=== PATIENT | female | born 1935 | race Two or more races ===

== ENCOUNTER 2017-01-30 21:09 | Emergency (ER) | payer MEDICARE, OTHER ==
[~2017-01-30] VITALS: Ht 162.6 cm; Wt 72.6 kg
--- NOTE | 2017-01-30 21:28 | NUR ---
PT BIBA #889 PT STATES SHE HAS NOT BEEN ABLE TO URINATE. PT AOX3 MALDIVIAN SPEAKING, FAMILY AT BEDSIDE FOR TRANSLATION. PT AOX3 RR EVEN AND UNLABORED. NO SOB NOTED. NAD NOTED. NO NVD AT THIS TIME. PT GOWNED AND PLACED ON MONITOR WAITING FOR MD CHOWDARY.
[2017-01-30] MEDS ORDERED: IV NS 0.9% 1,000 ML BAG IV ONE (21:30)
--- NOTE | 2017-01-30 21:30 | NUR ---
DR. AMBROSIO AT BEDSIDE FOR EVAL.
[2017-01-30] MEDS ORDERED: IV NS 0.9% 1,000 ML ONE (22:01)
[2017-01-30] MEDS ORDERED: IV SET PRIMARY 1 EA INFUS.SET MC ONE (22:01)
[2017-01-30 22:03] LABS: BASOPHILS # (AUTO) 0.1 /CMM (0.0-0.2); BASOPHILS % (AUTO) 1.2 % (0.0-2.0); EOSINOPHILS # (AUTO) 0.2 /CMM (0.0-0.7); EOSINOPHILS % (AUTO) 2.1 % (0.0-6.0); HEMATOCRIT 40 % (33-45); HEMOGLOBIN 13.3 g/dL (11.5-14.8); LYMPHOCYTES # (AUTO) 2.7 /CMM (0.8-4.8); LYMPHOCYTES % (AUTO) 26.1 % (20.0-44.0); MEAN CORPUSCULAR HEMOGLOBIN 29 PG (26.0-33.0); MEAN CORPUSCULAR HGB CONC 33 g/dl (31.0-36.0); MEAN CORPUSCULAR VOLUME 88 fL (82-100); MONOCYTES # (AUTO) 0.5 /CMM (0.1-1.30); MONOCYTES % (AUTO) 5.2 % (2.0-12.0); NEUTROPHILS # (AUTO) 6.9 /CMM (1.8-8.9); NEUTROPHILS % (AUTO) 65.4 % (43.0-81.0); PLATELET COUNT (AUTO) 365 /CMM (150-450); RDW COEFFICIENT OF VARIATION 14.4 (11.5-15.0); RED BLOOD CELL COUNT(AUTO) 4.59 MIL/uL (4.0-5.2); WHITE BLOOD COUNT (AUTO) 10.5 K/uL (4.3-11.0)
[2017-01-30 22:11] LABS: CALCIUM, SERUM 9.2 mg/dL (8.5-10.1); CREATININE 0.9 mg/dL (0.6-1.3)
[2017-01-30 22:20] LABS: LACTIC ACID 1.1 mmol/L (0.4-2.0)
[2017-01-30] MEDS ORDERED: CEFTRIAXONE 1GM BAG (ER ONLY) 1 GM/50 ML PIGGYBACK IV ONE (22:30)
[2017-01-30] MEDS ORDERED: IV D5W 50 ML IV ONE (22:47)
[2017-01-30] MEDS ORDERED: IV SET PRIMARY PUMP SET 1 EA INFUS.SET MC ONE (22:47)
[2017-01-30] MEDS ORDERED: CEFTRIAXONE 1 G VIAL ONE (22:47)
--- NOTE | 2017-01-30 23:38 | NUR ---
IV removed. Catheter intact and site benign. Pressure and 4x4 applied to site. No bleeding noted. Patient discharged to home in stable condition. Written and verbal after care instructions given. Patient verbalizes understanding of instruction. ambulatory with a steady gait. pt w/c per family and pt request.
[2017-01-30 23:43] VITALS: BP 138/68
[2017-01-30 23:44] LABS: APPEARANCE,URINE SL CLOUDY (CLEAR); BILIRUBIN,URINE NEGATIVE (NEGATIVE); BLOOD, URINE 1+ Ery/uL (NEGATIVE); COLOR,URINE YELLOW (YELLOW); KETONES,URINE NEGATIVE (NEGATIVE); LEUKOCYTE ESTERASE ,URINE NEGATIVE (NEGATIVE); NITRITE, URINE POSITIVE (NEGATIVE); PH,URINE 5.5 (5.0-8.0); PROTEIN,URINE NEGATIVE (NEGATIVE); UGLUCOSE NEGATIVE (NEGATIVE); UROBILINOGEN,URINE 0.2 EU/dL (0.2)
[2017-01-30 23:57] LABS: ADD URINE CULTURE YES; BACTERIA,URINE 2+ /HPF (None Seen); SQUAMOUS EPITHELIAL CELL,UR Few /HPF (None Seen)
== END 2017-01-30 23:43 | disposition home or self-care (01) ==
LOC: ER 21:13
DX: N39.0 Urinary tract infection, site not specified (principal); I10 Essential (primary) hypertension; N20.0 Calculus of kidney; E11.9 Type 2 diabetes mellitus without complications
CPT/HCPCS: 36415; 51702; 80048; 81001; 83605; 85025; 87040 ×2; 87077; 87086; 87186; 96361; 96365; 99284; A4606; J0696; J7030; J7060; 81000-TC; Z7610

== ENCOUNTER 2017-07-10 01:28 | Inpatient (IN) | payer MEDICARE, OTHER ==
[~2017-07-10] VITALS: Ht 162.6 cm; Wt 73.5 kg
--- NOTE | 2017-07-10 01:35 | NUR ---
TO BED 5 AN 82 YO FEMALE BIBRA 89 FROM HOME FOR AMS X 2-3 HRS AGO. ON THE FIELD BP 60/30; BS 250. UPON ARRIVAL, PATIENT IS AWAKE, RESPONSIVE, PLACED ON CARDIAC AND VS MONITORING. GOWNED. SAFETY AND COMFORT MEASURES OBSERVED.
--- NOTE | 2017-07-10 01:50 | NUR ---
SHELLFISH MEAT SEPARATOR OPERATOR AT BEDSIDE TO DRAW BLOOD.
--- NOTE | 2017-07-10 01:55 | NUR ---
patient to ct.
[2017-07-10] MEDS ORDERED: IV NS 0.9% 1,000 ML BAG IV ONE (02:00)
[2017-07-10 02:03] LABS: BASOPHILS % (AUTO) 0.1 % (0.0-2.0); HEMATOCRIT 37 % (33-45); HEMOGLOBIN 12.2 g/dL (11.5-14.8); LYMPHOCYTES # (AUTO) 0.5 /CMM (0.8-4.8); LYMPHOCYTES % (AUTO) 3.7 % (20.0-44.0); MEAN CORPUSCULAR HEMOGLOBIN 29 PG (26.0-33.0); MEAN CORPUSCULAR HGB CONC 33 g/dl (31.0-36.0); MEAN CORPUSCULAR VOLUME 86 fL (82-100); MONOCYTES # (AUTO) 0.3 /CMM (0.1-1.30); MONOCYTES % (AUTO) 2.5 % (2.0-12.0); NEUTROPHILS # (AUTO) 12.6 /CMM (1.8-8.9); NEUTROPHILS % (AUTO) 93.7 % (43.0-81.0); PLATELET COUNT (AUTO) 284 /CMM (150-450); RDW COEFFICIENT OF VARIATION 12.9 (11.5-15.0); RED BLOOD CELL COUNT(AUTO) 4.29 MIL/uL (4.0-5.2); WHITE BLOOD COUNT (AUTO) 13.4 K/uL (4.3-11.0)
[2017-07-10] MEDS ORDERED: TRAM50TA2 PO (02:04)
[2017-07-10] MEDS ORDERED: ZOLP10TA6 PO (02:04)
[2017-07-10] MEDS ORDERED: OLME40TA3 PO (02:04)
[2017-07-10] MEDS ORDERED: QUET25TA PO (02:04)
[2017-07-10] MEDS ORDERED: AMLO10TA2 PO (02:04)
[2017-07-10 02:16] LABS: INR 0.99 (0.87-1.13); PROTHROMBIN TIME 10.6 SECS (9.5-12.7)
--- NOTE | 2017-07-10 02:21 | NUR ---
straight catheter performed aseptically, drained about 300cc orange colored urine, collected and called lab for merchandise pickup/receiving associate. family at bedside.
[2017-07-10 02:29] LABS: APPEARANCE,URINE CLEAR (CLEAR); BILIRUBIN,URINE NEGATIVE (NEGATIVE); BLOOD, URINE TRACE-INTA Ery/uL (NEGATIVE); COLOR,URINE YELLOW (YELLOW); KETONES,URINE NEGATIVE (NEGATIVE); LEUKOCYTE ESTERASE ,URINE 2+ (NEGATIVE); NITRITE, URINE POSITIVE (NEGATIVE); PROTEIN,URINE TRACE mg/dl (NEGATIVE); UGLUCOSE NEGATIVE (NEGATIVE); UROBILINOGEN,URINE 0.2 EU/dL (0.2)
[2017-07-10 02:30] LABS: CALCIUM, SERUM 8.5 mg/dL (8.5-10.1); CARBON DIOXIDE 23 mmol/L (21-32); CHLORIDE 108 mmol/L (98-107); CREATININE 1.4 mg/dL (0.6-1.3); GLUCOSE 184 mg/dL (74-106); POTASSIUM 4.3 mmol/L (3.5-5.1); SODIUM SERUM 144 mmol/L (136-145); UREA NITROGEN, BLOOD 42 mg/dL (7-18)
[2017-07-10 02:35] LABS: ALANINE AMINOTRANSFERASE 15 U/L (12-78); ALBUMIN 2.9 g/dL (3.4-5.0); ALKALINE PHOSPHATASE 109 U/L (46-116); ASPARTATE AMINOTRANSFERASE 16 U/L (15-37); BILIRUBIN,DIRECT 0.3 mg/dL (0.0-0.2); BILIRUBIN,TOTAL 0.8 mg/dL (0.2-1.0); TOTAL PROTEIN, SERUM 6.6 g/dL (6.4-8.2)
[2017-07-10 02:38] LABS: TROPONIN I < 0.017 ng/mL (0.00-0.056)
[2017-07-10] MEDS ORDERED: CEFTRIAXONE 1GM BAG (ER ONLY) 50 ML IV ONE (02:52)
[2017-07-10] MEDS ORDERED: CEFTRIAXONE 1GM BAG (ER ONLY) 1 GM/50 ML PIGGYBACK IV ONE (03:00)
[2017-07-10] MEDS ORDERED: LEVOFLOXACIN 750 MG /D5W 150ML PIGGYBACK IV ONE (03:00)
[2017-07-10 03:04] LABS: BACTERIA,URINE 3+ /HPF (None Seen); SQUAMOUS EPITHELIAL CELL,UR Few /HPF (None Seen); URINE AMORPHOUS URATE Few /HPF (None Seen); WBC,URINE 25-30 /HPF (0-3)
--- NOTE | 2017-07-10 03:06 | NUR ---
Report given to Rolando RN for admission and sekou.
--- NOTE | 2017-07-10 03:15 | NUR ---
Endorsed to Rolando RN Azithromycin IVPB order by Dr Johnson.
--- NOTE | 2017-07-10 03:20 | NUR ---
Transferred patient to tele bed 308-2 via als protocol, no incident noted.
--- NOTE | 2017-07-10 03:25 | NUR ---
SALES ENGINEER ENGINEERED PRODUCTS ADMIT PT ARRIVED ON UNIT. AAOX1, CONFUSED, SLOW TO RESPOND. NO S/S OF ANY DISTRESS OR DISCOMFORT. BREATHING NON-LABORED AND EVEN ON 2L NC. SKIN WARM TO TOUCH, NON-DIAPHORETIC. TELE SHOWS SR W/ BBB. IV INTACT AND PATENT. SKIN ISSUES NOTED. UNABLE TO AMBULATE. FAMILY AT BEDSIDE - UPDATED THEM ON PT POC AND GAVE UNIT ORIENTATION. CALL LIGHT IN REACH, WILL MONITOR.
[2017-07-10] MEDS: AZITHROMYCIN 500 MG in IV D5W 250 ML IV SCH ×2 (03:26→05:15)
[2017-07-10] MEDS ORDERED: ALBUTEROL FS 2.5 MG/3 ML VIAL.NEB NEB PRN (03:30)
[2017-07-10] MEDS ORDERED: Z GUARD REMEDY 2 OZ OINT TP PRN (03:30)
[2017-07-10] MEDS ORDERED: MAG HYDROX/AL HYDROX/SIMETH 30 ML UDC PO PRN (03:30)
[2017-07-10] MEDS ORDERED: MAGNESIUM HYDROXIDE 30 ML UDC PO PRN (03:30)
[2017-07-10] MEDS ORDERED: TRAMADOL HCL 50 MG TABLET PO PRN (03:30)
[2017-07-10] MEDS ORDERED: ACETAMINOPHEN 325 MG TABLET PO PRN (03:30)
[2017-07-10] MEDS ORDERED: ONDANSETRON HCL/PF 4 MG/2 ML VIAL IVP PRN (03:30)
--- NOTE | 2017-07-10 03:35 | NUR ---
rn notes: asked rn research fedilyn to override rocephin 1g scheduled for 0330, med was prepared then when about to administered noted that rocephin was given in er at 0250am, so per rn research no need to give another dose, med was wasted with another rn ramonita
[2017-07-10] MEDS ORDERED: CEFTRIAXONE 1 G VIAL ONE (03:44)
[2017-07-10] MEDS: IV NS 0.9% 1,000 ML IV PRN ×2 (04:00→15:17)
--- NOTE | 2017-07-10 04:00 | NUR ---
RN NOTE PER [facility] , GIVE ZITHROMAX IV THAT WAS SUPPOSED TO BE GIVEN IN E.R.
[2017-07-10] MEDS ORDERED: AZITHROMYCIN 500 MG VIAL ONE (05:02)
--- NOTE | 2017-07-10 06:48 | NUR ---
RN NOTE NO SIGNIFICANT CHANGES SINCE ADMISSION. PT RESTING COMFORTABLY IN BED WITH EYES CLOSED, AAOX1, NO S/S OF ANY DISTRESS AT THIS TIME, NO SOB NOTED. TELE SHOWS SB IN 50'S. IV INTACT AND PATENT, TOLERATING FLUIDS WELL. FAMILY AT BEDSIDE, CALL LIGHT IN REACH, WILL F/U WITH DAY SHIFT FOR RADHA.
--- NOTE | 2017-07-10 07:15 | NUR ---
SUPERVISOR PRODUCT INSPECTION OPENING NOTE REPORT RECEIVED ON THE PATIENT AT THE BEDSIDE. FAMILY PRESENT AT THE BEDSIDE DURING REPORT. PATIENT SLEEPING IN THE BED COMFORTABLY. EXTERNAL MONITOR SINUS RHYTHM 62. VS WNL. PER BARREL DRILLER'S REPORT PATIENT'S BLOOD PRESSURE HAS BEEN DECREASED THROUGHOUT THE NIGHT, BUT IS TRENDING UP. WILL CONTINUE TO MONITOR. BED IS LOCKED IN LOWEST POSITION. SIDE RAILS UP X 2. BED ALARM ON.
[2017-07-10 08:00] VITALS: BP 93/56
[2017-07-10] MEDS: AMLODIPINE BESYLATE 10 MG TABLET PO SCH (08:14)
[2017-07-10] MEDS: PANTOPRAZOLE 40 MG TABLET.DR PO SCH (08:29)
[2017-07-10] MEDS: QUETIAPINE FUMARATE 25 MG TABLET PO SCH ×2 (08:29→17:48)
[2017-07-10 10:00] VITALS: BP 93/56
[2017-07-10] MEDS ORDERED: DEXTROSE 50%-WATER 50 ML DISP.SYRIN IV PRN (11:30)
[2017-07-10] MEDS ORDERED: PIPERACILLIN /TAZOBACTAM 3.375 G in IV D5W 50 ML IV SCH (12:00)
[2017-07-10] MEDS: NYSTATIN CREAM 15 GM TUBE TP SCH ×2 (12:00→17:49)
[2017-07-10] MEDS: PIPERACILLIN /TAZOBACTAM 2.25 G in IV D5W 50 ML IV SCH ×3 (12:42→23:44)
[2017-07-10] MEDS: BLOOD SUGAR DIAGNOSTIC 1 EACH STRIP IN SCH ×3 (12:45→22:00)
[2017-07-10] MEDS: HYDROCODONE/APAP 5/325MG 1 EACH TABLET PO PRN (13:35)
--- NOTE | 2017-07-10 15:25 | NUR ---
MS RN NOTE INFORMED MICHAEL GOMEZ NP OF PATIENT HAVING 75 ML URINE OUTPUT IN LAST 5 HRS. RECEIVED AN ORDER FOR A BLADDER SCAN. WILL FOLLOW.
[2017-07-10 16:00] VITALS: BP 82/45
--- NOTE | 2017-07-10 17:00 | NUR ---
MS RN NOTE STRAIGHT CATHETER PERFORMED. 700ML OF DADRK YELLOW URINE OBTAINED. PATIENT TOLERATED PROCEDURE WELL. DAUGHTER AT THE BEDSIDE. ALL NEEDS WITHIN REACH.
--- NOTE | 2017-07-10 19:00 | NUR ---
RN NOTE RECEIVED REPORT. PT AAOX1-2, NO S/S OF ANY DISTRESS, BREATHING NON-LABORED AND EVEN. IV ITNACT AND PATENT, TOLERATING FLUIDS WELL. TELE SHOWS SR. FAMILY AT BEDSIDE, WILL CONT TO TINO.
--- NOTE | 2017-07-10 19:33 | NUR ---
MS RN CLOSING NOTE. PATIENT IS RESTING IN BED. IV FLUIDS RUNNING ORDERED. BED IS IN LOWEST POSITION, LOCKED, SIDE RAILS UP X3, BED ALARM ON. PATIENT IN MENDEZ'S POSITION. FAMILY AT THE BEDSIDE. ALL NEEDS WITHIN REACH. VS WNL. PATIENT IS STABLE. WILL ENDORSE TO NEXT SHIFT FOR RADHA.
[2017-07-10 20:00] VITALS: BP 97/53
--- NOTE | 2017-07-10 21:21 | NUR ---
RN NOTE BLADDER SCAN REVEALED 150 ML, WILL INFORM MD PER ORDER
[2017-07-10] MEDS: ZOLPIDEM TARTRATE 5 MG TABLET PO PRN (22:00)
[2017-07-11] VITALS (8 sets, daily range): BP systolic 92–174; BP diastolic 44–79
[2017-07-11] MEDS ORDERED: CEFTRIAXONE 1 G in IV D5W 50 ML IV SCH (05:00)
--- NOTE | 2017-07-11 05:00 | NUR ---
RN NOTE BLADDER SCAN 650. MD MADE AWARE, ORDERED TO INSERT ACEVEDO CATHETER. WILL CARRY OUT.
[2017-07-11] MEDS: PIPERACILLIN /TAZOBACTAM 2.25 G in IV D5W 50 ML IV SCH ×3 (06:07→17:41)
--- NOTE | 2017-07-11 06:44 | NUR ---
RN NOTE NO SIGNIFICANT EVENTS OVERNIGHT. PT RESTING IN BED WITH EYES CLOSED, NO S/S OF ANY DISTRESS. BREATHING EVEN AND NON-LABORED. IV INTACT AND PATENT, TOLERATING FLUISD WELL. F/C DRAINING YELLOW FLUID. FAMILY AT BEDSIDE, WILL ENDORSE TO DAY SHIFT FOR RADHA.
--- NOTE | 2017-07-11 07:05 | NUR ---
MS RN OPENING NOTE REPORT RECEIVED ON THE PATIENT. PATIENT IS SLEEPING IN BED COMFORTABLY. DAUGHTER AT THE BEDSIDE. VS WNL. BED IS LOCKED IN LOWEST POSITION, SIDE RAILS ELEVATED X 2, BED ALARM IS ON. ALL NEEDS WITHIN REACH. WILL COME BACK FOR A DAILY ASSESSMENT SHORTLY.
[2017-07-11] MEDS: BLOOD SUGAR DIAGNOSTIC 1 EACH STRIP IN SCH ×4 (07:13→21:17)
[2017-07-11 07:40] LABS: BASOPHILS # (AUTO) 0.1 /CMM (0.0-0.2); BASOPHILS % (AUTO) 0.6 % (0.0-2.0); EOSINOPHILS # (AUTO) 0.4 /CMM (0.0-0.7); EOSINOPHILS % (AUTO) 3.8 % (0.0-6.0); HEMATOCRIT 36 % (33-45); HEMOGLOBIN 11.9 g/dL (11.5-14.8); LYMPHOCYTES # (AUTO) 1.5 /CMM (0.8-4.8); LYMPHOCYTES % (AUTO) 15.3 % (20.0-44.0); MEAN CORPUSCULAR HEMOGLOBIN 29 PG (26.0-33.0); MEAN CORPUSCULAR HGB CONC 33 g/dl (31.0-36.0); MEAN CORPUSCULAR VOLUME 87 fL (82-100); MONOCYTES # (AUTO) 0.3 /CMM (0.1-1.30); MONOCYTES % (AUTO) 3.6 % (2.0-12.0); NEUTROPHILS # (AUTO) 7.4 /CMM (1.8-8.9); NEUTROPHILS % (AUTO) 76.7 % (43.0-81.0); PLATELET COUNT (AUTO) 270 /CMM (150-450); RED BLOOD CELL COUNT(AUTO) 4.14 MIL/uL (4.0-5.2); WHITE BLOOD COUNT (AUTO) 9.7 K/uL (4.3-11.0)
[2017-07-11] MEDS: NYSTATIN CREAM 15 GM TUBE TP SCH ×2 (08:03→17:44)
[2017-07-11] MEDS: QUETIAPINE FUMARATE 25 MG TABLET PO SCH ×2 (08:03→17:45)
[2017-07-11] MEDS: PANTOPRAZOLE 40 MG TABLET.DR PO SCH (08:04)
[2017-07-11] MEDS: AMLODIPINE BESYLATE 10 MG TABLET PO SCH (08:08)
[2017-07-11 09:24] LABS: CARBON DIOXIDE 25 mmol/L (21-32); CHLORIDE 110 mmol/L (98-107); CREATININE 0.7 mg/dL (0.6-1.3); GLUCOSE 110 mg/dL (74-106); PHOSPHORUS 2.4 mg/dL (2.5-4.9); POTASSIUM 3.6 mmol/L (3.5-5.1); SODIUM SERUM 142 mmol/L (136-145); UREA NITROGEN, BLOOD 17 mg/dL (7-18)
[2017-07-11 09:25] LABS: CHOLESTEROL 183 mg/dL (<200); HDL CHOLESTEROL 29 mg/dL (40-60); LDL 122 mg/dL (0-99); TRIGLYCERIDES 159 mg/dL (30-150)
--- NOTE | 2017-07-11 11:00 | NUR ---
MS RN NOTE DR BECKER AT THE BEDSIDE. FAMILY AT THE BEDSIDE. ECHO WILL BE ORDERED PER DR BECKER.
--- NOTE | 2017-07-11 11:29 | NUR ---
MS RN NOTE ECHO IS BEING PERFORMED AT THE BEDSIDE.
[2017-07-11] MEDS: INSULIN REGULAR, HUMAN 100 UNIT/ML 3 ML VIAL SQ PRN (12:54)
[2017-07-11] MEDS: IV NS 0.9% 1,000 ML IV PRN (15:03)
[2017-07-11] MEDS ORDERED: K PHOS NEUTRAL 250 MG TABLET PO ONE (15:30)
--- NOTE | 2017-07-11 19:30 | NUR ---
MS RN NOTE RECEIVED PATIENT ASLEEP IN BED. EASILY AROUSABLE. NO RESPIRATORY DISTRESS OR SOB NOTED. DAUGHTER AT BEDSIDE. IV SITE TO LEFT WRIST INTACT WITH NO FLUIDS ORDERED. BED LOCKED AND IN LOWEST POSITION. SIDE RAILS UP, CALL LIGHT WITHIN REACH. WILL CONTINUE TO MONITOR.
--- NOTE | 2017-07-11 19:34 | NUR ---
MS RN CLOSING NOTE PATIENT IS STABLE IN BED. FAMILY AT THE BEDSIDE. VS WNL. BED IS LOCKED, IN LOWEST POSITION. SIDE RAILS UP X 2. ALL NEEDS WITHIN REACH. DENIES PAIN/DISCOMFORT AT THIS TIME. WILL ENDORSE TO THE NEST SHIFT FOR RADHA.
[2017-07-11] MEDS: HYDROCODONE/APAP 5/325MG 1 EACH TABLET PO PRN (21:17)
[2017-07-11] MEDS: ZOLPIDEM TARTRATE 5 MG TABLET PO PRN (21:48)
--- NOTE | 2017-07-11 22:00 | NUR ---
MS RN NOTE BLOOD SUGAR 122. NO COVERAGE NEEDED.
--- NOTE | 2017-07-12 | NUR ---
MS RN NOTE PATIENT PULLED OUT IV. REFUSING TO HAVE NEW IV RE-INSERTED AT THIS TIME. WILL TRY AGAIN LATER.
--- NOTE | 2017-07-12 01:30 | NUR ---
MS RN NOTE NEW IV INSERTED TO LEFT WRIST. PATIENT TOLERATED WELL. WILL CONTINUE TO MONITOR.
[2017-07-12] MEDS: PIPERACILLIN /TAZOBACTAM 2.25 G in IV D5W 50 ML IV SCH ×4 (02:44→17:15)
[2017-07-12] MEDS: PANTOPRAZOLE 40 MG TABLET.DR PO SCH (06:27)
[2017-07-12] MEDS: BLOOD SUGAR DIAGNOSTIC 1 EACH STRIP IN SCH ×4 (06:28→21:44)
[2017-07-12] MEDS: IV NS 0.9% 1,000 ML IV PRN (06:28)
--- NOTE | 2017-07-12 07:15 | NUR ---
MS RN NOTES RECEIVED PATIENT IN BED, AWAKE, A/O X1. ON OXYGEN AT 2LPM VIA NC, BREATHING EVEN AND NON LABORED. IVF NS INFUSING AT 100ML/HR, TOLERATING WELL. NO SOB. ACEVEDO CATH INTACT DRAINING TO GRAVITY. CALL LIGHT WITHIN REACH. WILL CONT TO MONITOR.
[2017-07-12 07:17] LABS: BASOPHILS # (AUTO) 0.1 /CMM (0.0-0.2); BASOPHILS % (AUTO) 1.2 % (0.0-2.0); EOSINOPHILS # (AUTO) 0.5 /CMM (0.0-0.7); EOSINOPHILS % (AUTO) 5.4 % (0.0-6.0); HEMATOCRIT 38 % (33-45); HEMOGLOBIN 12.4 g/dL (11.5-14.8); LYMPHOCYTES # (AUTO) 3.1 /CMM (0.8-4.8); LYMPHOCYTES % (AUTO) 34.6 % (20.0-44.0); MEAN CORPUSCULAR HEMOGLOBIN 29 PG (26.0-33.0); MEAN CORPUSCULAR HGB CONC 33 g/dl (31.0-36.0); MEAN CORPUSCULAR VOLUME 87 fL (82-100); MONOCYTES # (AUTO) 0.4 /CMM (0.1-1.30); MONOCYTES % (AUTO) 4.6 % (2.0-12.0); NEUTROPHILS # (AUTO) 4.8 /CMM (1.8-8.9); NEUTROPHILS % (AUTO) 54.2 % (43.0-81.0); PLATELET COUNT (AUTO) 336 /CMM (150-450); RED BLOOD CELL COUNT(AUTO) 4.32 MIL/uL (4.0-5.2); WHITE BLOOD COUNT (AUTO) 8.9 K/uL (4.3-11.0)
[2017-07-12 07:57] LABS: CALCIUM, SERUM 8.2 mg/dL (8.5-10.1); CARBON DIOXIDE 27 mmol/L (21-32); CHLORIDE 109 mmol/L (98-107); CREATININE 0.7 mg/dL (0.6-1.3); GLUCOSE 92 mg/dL (74-106); POTASSIUM 3.6 mmol/L (3.5-5.1); SODIUM SERUM 144 mmol/L (136-145); UREA NITROGEN, BLOOD 8 mg/dL (7-18)
[2017-07-12 08:00] VITALS: BP 116/75
[2017-07-12] MEDS: AMLODIPINE BESYLATE 10 MG TABLET PO SCH (08:51)
[2017-07-12] MEDS: QUETIAPINE FUMARATE 25 MG TABLET PO SCH ×2 (08:51→17:15)
[2017-07-12] MEDS: NYSTATIN CREAM 15 GM TUBE TP SCH ×2 (08:54→17:15)
--- NOTE | 2017-07-12 09:39 | NUR ---
PATIENT IS SEEN BY COMMERCIAL PARTS PROFESSIONAL-ELSY. DC IVF NS AT 100ML/HR ORDERED. PER COMMERCIAL PARTS PROFESSIONAL TO CHECK PATIENTS SATURATION WITHOUT OXYGEN VIA NC.
--- NOTE | 2017-07-12 09:45 | NUR ---
PATIENT IN BED, SATING 92% RA, APPEARS COMFORTABLE, BREATHING EVEN AND NON LABORED, NO SOB NOTED.
[2017-07-12] MEDS: INSULIN REGULAR, HUMAN 100 UNIT/ML 3 ML VIAL SQ PRN ×2 (11:49→17:12)
--- NOTE | 2017-07-12 15:48 | NUR ---
PATIENT IS SEEN BY MARTINA TODAY, RECOMMEND BOOST GLUCOSE DRINK FOR DIETARY SUPP.
[2017-07-12 16:00] VITALS: BP 111/57
[2017-07-12] MEDS: BOOST GLUCOSE CONTROL VANILLA 237 ML BOX PO SCH (17:56)
--- NOTE | 2017-07-12 18:40 | NUR ---
MS RN CLOSING NOTES PATIENT IN BED, A/O X1. NOT IN DISTRESS. ON ROOM AIR, TOLERATING WELL. NO SOB NOTED. ON ANTIBIOTIC ORDERED, NO S/S OF ADVERSE SIDE EFFECT, AFEBRILE, NO DIARRHEA. POOR APPETITE, NO S/S OF HYPO/HYPERGLYCEMIA. OFFERED BOOST GLUCOSE FOR SUPP. NO C/O PAIN AT THIS TIME. CALL LIGHT WITHIN REACH. FOR DC PLANNING TO SNF. WILL ENDORSE TO MILK TESTER RN FOR CONTINUITY OF CARE.
--- NOTE | 2017-07-12 19:10 | NUR ---
RN OPEN NOTES RECEIVED PATIENT AWAKE IN BED WITH FAMILY AT BEDSIDE. A/O X1. NO SIGNS OF DISTRESS OR DISCOMFORT. BREATHING EVEN AND UNLABORED. IV ACCESS IN L WRIST PATENT AND INTACT, NO SIGNS OF REDNESS OR INFILTRATION. HAS F/C INTACT WITH CLEAR YELLOW FLUID NOTED. BED IN LOW LOCKED POSITION WITH SIDE RAILS X2. CALL LIGHT WITHIN REACH. WILL CONTINUE TO MONITOR.
[2017-07-12 20:00] VITALS: BP 103/50
[2017-07-12 20:03] VITALS: BP 103/50
[2017-07-12] MEDS: HYDROCODONE/APAP 5/325MG 1 EACH TABLET PO PRN (20:26)
--- NOTE | 2017-07-12 20:26 | NUR ---
RN NOTES ADMINISTERED NORCO 5/325 ORDERED FOR PAIN 6/10 IN LOWER BACK. WILL CONTINUE TO MONITOR.
[2017-07-12] MEDS: HEPARIN SODIUM, PORCINE 5000 UNITS/1 ML VIAL SQ SCH (20:27)
[2017-07-12] MEDS: ZOLPIDEM TARTRATE 5 MG TABLET PO PRN (21:45)
--- NOTE | 2017-07-12 21:45 | NUR ---
RN NOTES ADMINISTERED AMBIEN 5MG ORDERED AT PATIENT REQUEST FOR INSOMNIA. VSS. WILL CONTINUE TO MONITOR.
[2017-07-13] MEDS: PIPERACILLIN /TAZOBACTAM 2.25 G in IV D5W 50 ML IV SCH ×3 (00:17→11:53)
[2017-07-13] MEDS: BLOOD SUGAR DIAGNOSTIC 1 EACH STRIP IN SCH ×2 (06:39→11:53)
--- NOTE | 2017-07-13 06:40 | NUR ---
RN CLOSING NOTES PATIENT RESTING IN BED, EASILY AROUSABLE TO NAME. A/O X1. NO SIGNS OF DISTRESS OR DISCOMFORT. BREATHING EVEN AND UNLABORED. IV ACCESS IN L WRIST PATENT AND INTACT, NO SIGNS OF REDNESS OR INFILTRATION. HAS F/C INTACT WITH CLEAR YELLOW FLUID NOTED. ALL NEEDS MET. NO SIGNIFICANT CHANGES THROUGH THE NIGHT. PATIENT KEPT CLEAN DRY AND COMFORTABLE. REPOSITIONED Q2H. BED IN LOW LOCKED POSITION WITH SIDE RAILS X2. CALL LIGHT WITHIN REACH. WILL ENDORSE TO AM SHIFT FOR RADHA.
--- NOTE | 2017-07-13 07:30 | NUR ---
MS RN OPENING NOTE PATIENT IS ASLEEP AT THIS TIME. NO FACIAL GRIMACING NOTED FOR PAIN. NO SOB OR DISTRESS NOTED. CALL LIGHT WITHIN REACH. SAFETY MEASURES IMPLEMENTED. IV INTACT AND PATENT NO REDNESS OR SWELLING NOTED. [place] ISLANDER SPEAKING, FAMILY AT BEDSIDE TO HELP. ALERT AND ORIENTED x1. ACEVEDO CATHETER IN PLACE, NO CLOUDY APPEARANCE, NO SEDIMENT NOTED. WILL CONTINUE TO MONITOR
[2017-07-13 08:00] VITALS: BP 116/59
[2017-07-13] MEDS: QUETIAPINE FUMARATE 25 MG TABLET PO SCH (09:07)
[2017-07-13 09:08] VITALS: BP 116/59
[2017-07-13] MEDS: BOOST GLUCOSE CONTROL VANILLA 237 ML BOX PO SCH (09:08)
[2017-07-13] MEDS: PANTOPRAZOLE 40 MG TABLET.DR PO SCH (09:08)
[2017-07-13] MEDS: AMLODIPINE BESYLATE 10 MG TABLET PO SCH (09:08)
[2017-07-13] MEDS: NYSTATIN CREAM 15 GM TUBE TP SCH (09:09)
[2017-07-13] MEDS: HEPARIN SODIUM, PORCINE 5000 UNITS/1 ML VIAL SQ SCH (09:09)
[2017-07-13] MEDS ORDERED: LEVO500T15 PO (10:48)
--- NOTE | 2017-07-13 15:45 | NUR ---
MS CALENDER ROLL PRESS OPERATOR NOTE PATIENT IS ALERT AND ORIENTED x1. NO FACIAL GRIMACING NOTED FOR PAIN. NO SOB OR DISTRESS NOTED. CALL LIGHT WITHIN REACH AT ALL TIMES. SAFETY MEASURES IMPLEMENTED. ALL DUE MEDICATIONS GIVEN ORDERED BY MD, NO SIDE EFFECTS NOTED. GAVE REPORT TO RN BUSINESS DEVELOPMENT SALES EXECUTIVE AT [facility]. ALL DISCHARGE INSTRUCTIONS GIVEN TO DAUGHTER AND RN AT [facility], BOTH ABLE TO VERBALIZE UNDERSTANDING OF TEACHING AND ABLE TO RETURN TEACH BACK DEMONSTRATION. IV REMOVED, SKIN INTACT. ALL BELONGINGS WITH PATIENT. SKIN INTACT, BREAST FOLD REDNESS RESOLVING, PICTURES DOCUMENTED. LEAVING ON [facility] VIA AMBULANCE.
== END 2017-07-13 15:45 | DRG 871 ==
LOC: ER 01:29 → TELE 02:53 → MED 07-11 09:23
PROVIDERS: ADMIT Internal Medicine; ATTEND Internal Medicine
DX: A41.9 Sepsis, unspecified organism (principal); G93.41 Metabolic encephalopathy; N17.0 Acute kidney failure with tubular necrosis; E87.2 Acidosis; E44.0 Moderate protein-calorie malnutrition; A04.7 Enterocolitis due to Clostridium difficile; N39.0 Urinary tract infection, site not specified; E11.65 Type 2 diabetes mellitus with hyperglycemia; E11.22 Type 2 diabetes mellitus with diabetic chronic kidney disease; E78.5 Hyperlipidemia, unspecified; N18.9 Chronic kidney disease, unspecified; I12.9 Hypertensive chronic kidney disease with stage 1 through stage 4 chronic kidney disease, or unspecified chronic kidney disease; B96.20 Unspecified Escherichia coli [E. coli] as the cause of diseases classified elsewhere; E87.6 Hypokalemia; R65.20 Severe sepsis without septic shock; Z87.442 Personal history of urinary calculi; R31.9 Hematuria, unspecified; E86.0 Dehydration; E88.09 Other disorders of plasma-protein metabolism, not elsewhere classified; Z68.27 Body mass index [BMI] 27.0-27.9, adult; R53.1 Weakness; L98.9 Disorder of the skin and subcutaneous tissue, unspecified; L53.8 Other specified erythematous conditions; F03.90 Unspecified dementia, unspecified severity, without behavioral disturbance, psychotic disturbance, mood disturbance, and anxiety
CPT/HCPCS: 36415; 70450-TC; 71010-TC; 80048-TC; 80061-TC; 80076-TC; 81000-TC; 82962-TC; 83605-TC; 83735-TC; 84100-TC; 84484-TC; 85025-TC; 85730-TC; 87040-TC; 87081-TC; 87086-TC; 87186-TC; 93307-TC; 97116-TC; 97530-TC; A4606; J0456; J0696; J1644; J1815; J1956; J2543; J7030; J7060; Z7610